=== PATIENT | male | born 1955 | race Two or more races ===

== ENCOUNTER 2017-09-16 08:22 | Emergency (ER) | payer OTHER ==
[~2017-09-16] VITALS: Ht 170.2 cm; Wt 90.7 kg
[2017-09-16] MEDS ORDERED: LOSARTAN POTASS50 MG (08:27)
[2017-09-16] MEDS ORDERED: GLUCOPHAGE XR500 MG (08:27)
== END 2017-09-16 12:10 | disposition home or self-care (01) ==
LOC: ER 08:22
DX: K52.9 Noninfective gastroenteritis and colitis, unspecified (principal)

== ENCOUNTER 2021-07-08 07:11 | Outpatient (CLI) | payer OTHER ==
[~2021-07-08 07:11] MED LIST: GLUCOPHAGE XR500 MG; LOSARTAN POTASS50 MG
== END 2021-07-08 07:26 | disposition home or self-care (01) ==
LOC: TOM 07:11
PROVIDERS: ATTEND Internal Medicine Gastroenterology
DX: K57.90 Diverticulosis of intestine, part unspecified, without perforation or abscess without bleeding (principal); K52.89 Other specified noninfective gastroenteritis and colitis; Z12.11 Encounter for screening for malignant neoplasm of colon

== ENCOUNTER 2023-06-18 07:22 | Outpatient (CLI) | payer OTHER | END 2023-06-18 07:38 | disposition home or self-care (01) | LOC: MRI 07:22 | PROVIDERS: ATTEND General Practice | DX: E11.8 Type 2 diabetes mellitus with unspecified complications (principal); I10 Essential (primary) hypertension; Z88.6 Allergy status to analgesic agent | CPT/HCPCS: 73221 ==

== ENCOUNTER 2024-06-09 08:44 | Outpatient (CLI) | payer OTHER | END 2024-06-09 09:01 | disposition home or self-care (01) | LOC: MRI 08:44 | PROVIDERS: ATTEND General Practice | DX: M54.50 Low back pain, unspecified (principal); M53.3 Sacrococcygeal disorders, not elsewhere classified; G89.29 Other chronic pain | CPT/HCPCS: 72148 ==

== ENCOUNTER 2024-07-16 13:58 | Inpatient (IN) | payer OTHER ==
[~2024-07-16] VITALS: Ht 170.2 cm; Wt 86.2 kg
[~2024-07-16 13:58] MED LIST changes: +METHOCARBAMOL500 MG PO
[2024-07-16] MEDS ORDERED: SYNTHROID50 MCG PO (14:30)
--- NOTE | 2024-07-16 14:35 | NUR ---
PTE ALERTA Y ORIENTADO X3 QUIEN REFIERE VENIR YA QUE LE MISMO FUE A UN LABORATORIO Y SALIO CON INFECCION DE ORINA
[2024-07-16] MEDS ORDERED: 0.9 % SODIUM CHLORIDE 1,000 ML IV SCH ×2 (15:15→22:15)
[2024-07-16] MEDS ORDERED: CEFTRIAXONE SODIUM 2,000 MG VIAL IV ONE (15:15)
[2024-07-16 15:36] LABS: PH,URINE 5.5 (5.0-8.0); URINE APPEARANCE Cloudy; URINE BILIRRUBIN Negative (NEGATIVE); URINE BLOOD Moderate; URINE CAST 4.12 uL (0.0-1.40); URINE COLOR Yellow; URINE EPITHELIAL CELLS 4.7 uL (0.0-38.8); URINE GLUCOSE Negative (NEGATIVE); URINE KETONE Trace (NEGATIVE); URINE LEUKOCYTE Small; URINE NITRATE Negative; URINE RBC 16.6 uL (0.0-20.8); URINE WBC 847.5 uL (0.0-23.2)
[2024-07-16 15:54] LABS: URINE PROTEIN 300 (NEGATIVE)
--- NOTE | 2024-07-16 16:28 | NUR ---
PACIENTE ALERTA Y ORIENTADO X 3. SE ORIENTA DE TRATAMIENTO BRYANNA ORDEN MEDICA. REFIERE ENTENDER. SE CANALIZA, SE GREGOR MUESTRAS Y SE ADMINSITRAN MEDICAMENTOS BRYANNA ORDEN MEDICA. AREA DE VENO PUNCION PATENTE, FAYE DE EDEMA Y/O ERITEMA.
[2024-07-16 16:38] LABS: HEMATOCRIT 42.8 % (39.0-48.0); HEMOGLOBIN 14.6 g/dL (13-16.00); MEAN CELL VOLUME 96.6 fL (80.0-100.00); MEAN CORPUSCULAR HEMOGLOBIN 32.8 pg (27.00-32.0); PLATELET COUNT 161 K/uL (150-450); RED BLOOD COUNT 4.43 M/uL (4.00-6.00)
[2024-07-16 17:17] LABS: ALBUMIN 3.1 gm/dL (3.4-5.0); BILIRUBIN TOTAL 0.63 mg/dL (0.3-1.2); CALCIUM 9.2 mg/dL (8.5-10.1); CREATININE SERUM 1.53 mg/dL (0.70-1.30); GFR 45.62; POTASSIUM 4.35 mEq/L (3.5-5.1); TOTAL PROTEIN 8.1 gm/dL (6.4-8.2)
[2024-07-16 17:19] LABS: PROSTATIC SPECIFIC ANTIGEN 46.3 NG/ML (0.010-4.00)
[2024-07-16] MEDS ORDERED: levoFLOXacin IN DEXTROSE 5 % 150 ML IV SCH (22:12)
[2024-07-16] MEDS ORDERED: TAMSULOSIN HCL 0.4 MG CAP PO SCH (22:13)
[2024-07-16] MEDS ORDERED: FINASTERIDE 5 MG TABLET PO SCH (22:13)
[2024-07-16] MEDS ORDERED: ACETAMINOPHEN 500 MG GEL..CAP PO PRN (22:15)
[2024-07-17 01:49] LABS: INR 1.05; PARTIAL THROMBOPLASTIN TIME 29.7 SECONDS (22.0-34.0); PROTHROMBIN TIME 11.4 SECONDS (9.0-11.5)
[2024-07-17 01:52] VITALS: BP 150/63; O2SAT 97
[2024-07-17 04:00] VITALS: BP 151/67
[2024-07-17] MEDS ORDERED: LEVOTHYROXINE SODIUM 25 MCG TABLET PO SCH (06:00)
[2024-07-17] MEDS ORDERED: FAMOTIDINE/PF 20 MG in 0.9 % SODIUM CHLORIDE 8 ML IV PUSH SCH (09:00)
[2024-07-17] MEDS ORDERED: LOSARTAN POTASSIUM 50 MG TABLET PO SCH (09:00)
[2024-07-17 19:21] VITALS: BP 156/68
[2024-07-17] MEDS ORDERED: levoFLOXacin IN DEXTROSE 5 % 150 ML IV SCH (21:00)
[2024-07-18 02:53] VITALS: BP 115/56
[2024-07-18 09:37] VITALS: BP 159/74; O2SAT 94
[2024-07-18 10:27] LABS: CALCIUM 8.9 mg/dL (8.5-10.1); CREATININE SERUM 1.33 mg/dL (0.70-1.30); GFR 53.63; POTASSIUM 4.74 mEq/L (3.5-5.1)
[2024-07-18 17:01] VITALS: BP 146/89; O2SAT 98
[2024-07-19 01:12] VITALS: BP 156/84; O2SAT 97
[2024-07-19 09:00] VITALS: BP 165/85
[2024-07-19] MEDS ORDERED: LACTOBACILLUS ACIDOPHILUS 1 CAP CAP PO SCH (09:00)
[2024-07-19 13:58] LABS: PH,URINE 5.5 (5.0-8.0); URINE APPEARANCE Clear; URINE BILIRRUBIN Negative (NEGATIVE); URINE BLOOD Negative; URINE COLOR Yellow; URINE GLUCOSE Negative (NEGATIVE); URINE KETONE Negative (NEGATIVE); URINE LEUKOCYTE Negative; URINE NITRATE Negative; URINE PROTEIN 30 (NEGATIVE); URINE UROBILINOGEN 0.2 E.U./dl
[2024-07-19 13:59] LABS: URINE BACTERIA 6.2 uL (0.0-1933); URINE EPITHELIAL CELLS 4.6 uL (0.0-38.8); URINE WBC 14.9 uL (0.0-23.2)
[2024-07-19 14:04] LABS: HEMATOCRIT 43.6 % (39.0-48.0); HEMOGLOBIN 14.4 g/dL (13-16.00); MEAN CELL VOLUME 96.7 fL (80.0-100.00); MEAN CORPUSCULAR HEMOGLOBIN 31.8 pg (27.00-32.0); PLATELET COUNT 204 K/uL (150-450); RED BLOOD COUNT 4.51 M/uL (4.00-6.00); RED CELL DISTRIBUTION WIDTH 13.9 % (11.5-14.5)
[2024-07-19 14:05] LABS: URINE RBC 0.9 uL (0.0-20.8)
[2024-07-19 14:32] LABS: ALBUMIN 2.9 gm/dL (3.4-5.0); BILIRUBIN TOTAL 0.44 mg/dL (0.3-1.2); CALCIUM 8.9 mg/dL (8.5-10.1); CREATININE SERUM 1.29 mg/dL (0.70-1.30); GFR 55.55; POTASSIUM 4.65 mEq/L (3.5-5.1); TOTAL PROTEIN 6.9 gm/dL (6.4-8.2)
== END 2024-07-19 15:40 | disposition home or self-care (01) | DRG 690 ==
LOC: ER 13:58 → SEC-K 22:18 → MEDI 22:18
PROVIDERS: General Practice; Specialist/Technologist, Other Nephrology; Student in an Organized Health Care Education/Training Program; ADMIT Internal Medicine Pulmonary Disease; ATTEND Internal Medicine Pulmonary Disease
PROC: BW21ZZZ Computerized Tomography (CT Scan) of Abdomen and Pelvis (ICD-10-PCS; principal; 2024-07-16)
DX: N39.0 Urinary tract infection, site not specified (principal); N17.9 Acute kidney failure, unspecified; I10 Essential (primary) hypertension; N41.9 Inflammatory disease of prostate, unspecified; E11.9 Type 2 diabetes mellitus without complications; Z79.4 Long term (current) use of insulin